=== PATIENT | male | born 1970 | race Caucasian/White ===

== ENCOUNTER 2020-04-15 09:04 | Emergency (ER) | payer MEDICAID ==
[~2020-04-15] VITALS: Ht 188 cm; Wt 87.7 kg
[2020-04-15 09:56] VITALS: BP 121/81
== END 2020-04-15 10:28 | disposition home or self-care (01) ==
LOC: ED 10:13
DX: F20.9 Schizophrenia, unspecified (principal); Z76.0 Encounter for issue of repeat prescription
CPT/HCPCS: 99281

== ENCOUNTER 2020-05-18 08:39 | Emergency (ER) | payer MEDICAID ==
[~2020-05-18] VITALS: Ht 188 cm; Wt 96.2 kg
--- NOTE | 2020-05-18 09:12 | NUR ---
pt brought back from triage with chief complaint of low back pain, nasal congestion, and intermittent cough.
[2020-05-18] MEDS ORDERED: KETOROLAC 30 MG/1 ML ONE (09:14)
[2020-05-18] MEDS ORDERED: DEXAMETHASONE 4 MG TABLET ONE (09:14)
[2020-05-18] MEDS ORDERED: DEXAMETHASONE 4 MG TABLET PO ONE (09:30)
[2020-05-18] MEDS ORDERED: KETOROLAC 30 MG/1 ML IM ONE (09:30)
[2020-05-18 09:50] VITALS: BP 120/79
== END 2020-05-18 10:30 | disposition home or self-care (01) ==
LOC: ED 09:02
DX: S39.012A Strain of muscle, fascia and tendon of lower back, initial encounter (principal); Z20.828 Contact with and (suspected) exposure to other viral communicable diseases; B34.9 Viral infection, unspecified; Z76.0 Encounter for issue of repeat prescription; F17.200 Nicotine dependence, unspecified, uncomplicated; X58.XXXA Exposure to other specified factors, initial encounter; Y93.89 Activity, other specified; Y92.89 Other specified places as the place of occurrence of the external cause; Y99.8 Other external cause status
CPT/HCPCS: 71045; 87635; 96372; 99284; J1885

== ENCOUNTER 2020-05-20 09:29 | Emergency (ER) | payer MEDICAID ==
[~2020-05-20] VITALS: Ht 188 cm; Wt 91.0 kg
[2020-05-20] MEDS ORDERED: SODIUM CHLORIDE FLUSH 10ML SYR IVF ONE (10:00)
[2020-05-20] MEDS ORDERED: SODIUM CHLORIDE 0.9% 1,000ML IVBOLUS ONE (10:00)
--- NOTE | 2020-05-20 10:09 | NUR ---
THIS IS A 49 YO M BIB EMS [facility]/ C/O COUGH AND CONGESTION X1 WEEK. PT SEEN ON 05/18 FOR SAME W/ A COVID TEST PENDING. PT REPORTS NO WORSENING OF SYMPTOMS. PIV STARTED, LABS DRAWN. IVF RUNNING APPROPRIATELY. PT RESTING ON [employer] W/ CALL LIGHT IN REACH AND SIDE RAILS UPX2. DEVANTE, LETTY.
[2020-05-20 10:26] LABS: BASOPHILS % (AUTO) 0 % (0-1); EOSINOPHILS % (AUTO) 2 % (1-7); LYMPHOCYTES % (AUTO) 19 % (22-44); MEAN CORPUSCULAR HGB CONC 34.9 g/dL (33.2-36.2); MONOCYTES % (AUTO) 11 % (2-9); NEUTROPHILS % (AUTO) 69 % (42-75); PLATELET COUNT 198 x10^3/uL (130-400); RED BLOOD COUNT 3.73 x10^6/uL (4.38-5.82); RED CELL DISTRIBUTION WIDTH 12.1 % (9.4-14.8)
[2020-05-20 10:27] LABS: MD NO
[2020-05-20 10:33] LABS: ALBUMIN 3.2 g/dL (3.4-5.0); ANION GAP 6 mmol/L (5-15); CALCIUM 7.9 mg/dL (8.5-10.1); CHLORIDE 111 mmol/L (98-107)
--- NOTE | 2020-05-20 10:35 | NUR ---
[facility] [place] in EDM - 05/20/20 at 1041 by SHARMILA DUE TO PTS FLAILING IN BED AND ALMOST HITTING THIS RN, ONLY 1 NARE SWABBED AT THIS TIME FOR COVID TEST. THIS RN FELT UNSAFE TO SWAB 2ND. PROVIDER UPDATED.
--- NOTE | 2020-05-20 10:42 | NUR ---
ALL TESTS RESULTED PT IS UP FOR RECHECK AT THIS TIME.
[2020-05-20 11:20] VITALS: BP 106/57
--- NOTE | 2020-05-20 11:20 | NUR ---
BREAK RN: PT LAYING ON GURNEY WITH EYES CLOSED, NAD, NO NEEDS AT THIS TIME, CALL LIGHT WITHIN REACH.
== END 2020-05-20 12:57 | disposition home or self-care (01) ==
LOC: ED 11:54
DX: R11.0 Nausea (principal); R19.7 Diarrhea, unspecified; R05 Cough; R51.9 Headache, unspecified; R50.9 Fever, unspecified; M79.10 Myalgia, unspecified site
CPT/HCPCS: 36415; 71045; 80048; 82040; 83605; 85025; 87040; 96360; 99284; J7030

== ENCOUNTER 2020-07-06 09:41 | Emergency (ER) | payer MEDICAID ==
[~2020-07-06] VITALS: Ht 188 cm; Wt 94.0 kg
[2020-07-06 09:44] VITALS: BP 128/80
--- NOTE | 2020-07-06 10:27 | NUR ---
PT AMBULATED TO DISCHARGE W/STEADY GAIT. PT ENCOURAGED TO FOLLOWUP DISCUSSED. PT EDUCATED TO RETURN TO THE ED W/WORSENING SYMPTOMS. RX GIVEN
== END 2020-07-06 10:32 | disposition home or self-care (01) ==
LOC: ED 10:15
DX: F20.9 Schizophrenia, unspecified (principal); Z76.0 Encounter for issue of repeat prescription
CPT/HCPCS: 99281